=== PATIENT | female | born 1990 | race African-American/Black ===

== ENCOUNTER 2021-04-18 20:52 | Emergency (ER) | payer SELFPAY ==
[~2021-04-18] VITALS: Ht 162.6 cm; Wt 75.9 kg
[2021-04-19 02:20] VITALS: BP 111/74
[2021-04-19] MEDS ORDERED: DEXAMETHASONE 4 MG TABLET PO ONE (03:00)
[2021-04-19 03:06] LABS: BASO # 0.1 x10^3/uL (0.0-0.2); BASO % 1 % (0-3); EOS # 0.2 x10^3/uL (0.0-0.7); EOS % 3 % (0-3); HEMATOCRIT 41.3 % (36.0-47.0); HEMOGLOBIN 13.8 g/dL (12.0-15.5); LYMPH % 24 % (24-48); MEAN CORPUSCULAR HEMOGLOBIN 30 pg (25-35); MEAN CORPUSCULAR HGB CONC 33 g/dL (31-37); MEAN CORPUSCULAR VOLUME 91 fL (79-100); MONO % 12 % (0-9); NEUT # 4.9 x10^3/uL (1.8-7.7); NEUT % 60 % (31-73); PLATELET COUNT 251 x10^3/uL (140-400); RED BLOOD COUNT 4.53 x10^6/uL (3.50-5.40); RED CELL DISTRIBUTION WIDTH 13.8 % (11.5-14.5); WHITE BLOOD COUNT 8.2 x10^3/uL (4.0-11.0)
[2021-04-19 03:11] LABS: CALCIUM 9.1 mg/dL (8.5-10.1); CREATININE 0.9 mg/dL (0.6-1.0); GFR 89.6; POTASSIUM 3.8 mmol/L (3.5-5.1)
[2021-04-19 03:17] LABS: MONONUCLEOSIS PATIENT NEGATIVE (NEGATIVE)
--- NOTE | 2021-04-19 04:03 | RAD ---
EXAMINATION: CT NECK SOFT TISSUE WITHOUT CONTRAST, 04/19/2021 3:16 AM CLINICAL INDICATION: Concern for right-sided pharyngeal abscess. Contrast allergy. COMPARISON: None TECHNIQUE: Helical CT imaging performed of the neck without the use of intravenous contrast. Sagittal and coronal reformats were obtained. One or more of the following individualized dose reduction techniques were utilized for this examinat ion: 1. Automated exposure control 2. Adjustment of the mA and/or kV according to patient size 3. Use of iterative reconstruction technique. FINDINGS: The nasopharynx, oropharynx, hypopharynx, and larynx are normal. No obvious fluid collectio n or abscess. Evaluation is limited by lack of IV contrast. Parotid, submandibular, and thyroid gland s are normal. Visualized portion of the skull base is unremarkable. There are prominent bilateral cer vical chain lymph nodes, nonspecific and likely reactive. Lung apices are clear. There appears to be a right-sided aortic arch. No acute osseous abnormality of the cervical spine. IMPRESSION: Unremarkable CT of the neck. No evidence of abscess, although evaluation is limited by la ck of IV contrast. Electronically signed by: Fern Bravo MD (04/19/2021 4:01 AM) [id number]
--- NOTE | 2021-04-19 04:20 | PHYS DOC ---
Past Medical History Past Surgical History: No Surgical History General Adult EDM: Chief Complaint: SORE THROAT HPI: HPI: Patient is a 31 year old female who presents with approximately 6 days of sore throat. Worse on the right than the left. Worse with swallowing. No cough. Has had mild subjective fevers and chills. No runny nose. No shortness of breath. She still has her tonsils, and reports that she had a tonsillitis several months ago that got better with home remedies. Her throat hurts worse with movement of her neck left and right. Review of Systems: Review of Systems: Constitutional: Denies fever or chills. [] Eyes: Denies change in visual acuity. [] HENT: Denies nasal congestion. + sore throat. [] Respiratory: Denies cough or shortness of breath. [] Cardiovascular: Denies chest pain or edema. [] GI: Denies abdominal pain, nausea, vomiting, bloody stools or diarrhea. [] : Denies dysuria. [] Musculoskeletal: Denies back pain or joint pain. [] Integument: Denies rash. [] Neurologic: Denies headache, focal weakness or sensory changes. [] Endocrine: Denies polyuria or polydipsia. [] Lymphatic: Denies swollen glands. [] Psychiatric: Denies depression or anxiety. [] Heart Score: C/O Chest Pain: No Risk Factors: Risk Factors: DM, Current or recent (<one month) smoker, HTN, HLP, family history of CAD, obesity. Risk Scores: Score 0 - 3: 2.5% MACE over next 6 weeks - Discharge Home Score 4 - 6: 20.3% MACE over next 6 weeks - Admit for Clinical Observation Score 7 - 10: 72.7% MACE over next 6 weeks - Early Invasive Strategies Current Medications: Current Medications Medications (Trade) Dose Ordered Sig/Angelia Start Time Stop Time Status Last Admin Dose Admin Dexamethasone (Decadron) 10 mg 1X ONCE 04/19/21 03:00 04/19/21 03:01 DC 04/19/21 03:31 10 MG Allergies: Allergies: Allergies Coded Allergies Type Severity Reaction Last Updated Verified Iodine and Iodide Containing Produc Allergy Severe 04/19/21 Yes Physical Exam: PE: Constitutional: Well developed, well nourished, no acute distress, non-toxic appearance. [] HENT: Enlarged tonsils bilaterally. Uvula midline. Exudates present just posterior to her right tonsil. Right side of the neck slightly more swollen than the left with prominent anterior lymph nodes. Lymph nodes are present bilaterally. [] Eyes: PERRLA, EOMI, conjunctiva normal, no discharge. [] Neck: Normal range of motion, but notes pain in the right side of the neck with rotation. Tender anterior lymphadenopathy bilaterally. [] Cardiovascular:Heart rate regular rhythm, no murmur [] Lungs & Thorax: Bilateral breath sounds clear to auscultation [] Abdomen: Bowel sounds normal, soft, no tenderness, no masses, no pulsatile masses. [] Skin: Warm, dry, no erythema, no rash. [] Back: No tenderness, no CVA tenderness. [] Extremities: No tenderness, no cyanosis, no clubbing, ROM intact, no edema. [] Neurologic: Alert and oriented X 3, normal motor function, normal sensory function, no focal deficits noted. [] Psychologic: Affect normal, judgement normal, mood normal. [] Current Patient Data: Labs: Laboratory Tests Test 04/19/21 02:57 04/19/21 03:07 White Blood Count 8.2 x10^3/uL (4.0-11.0) Red Blood Count 4.53 x10^6/uL (3.50-5.40) Hemoglobin 13.8 g/dL (12.0-15.5) Hematocrit 41.3 % (36.0-47.0) Mean Corpuscular Volume 91 fL (79-100) Mean Corpuscular Hemoglobin 30 pg (25-35) Mean Corpuscular Hemoglobin Concent 33 g/dL (31-37) Red Cell Distribution Width 13.8 % (11.5-14.5) Platelet Count 251 x10^3/uL (140-400) Neutrophils (%) (Auto) 60 % (31-73) Lymphocytes (%) (Auto) 24 % (24-48) Monocytes (%) (Auto) 12 % (0-9) H Eosinophils (%) (Auto) 3 % (0-3) Basophils (%) (Auto) 1 % (0-3) Neutrophils # (Auto) 4.9 x10^3/uL (1.8-7.7) Lymphocytes # (Auto) 2.0 x10^3/uL (1.0-4.8) Monocytes # (Auto) 1.0 x10^3/uL (0.0-1.1) Eosinophils # (Auto) 0.2 x10^3/uL (0.0-0.7) Basophils # (Auto) 0.1 x10^3/uL (0.0-0.2) Sodium Level 137 mmol/L (136-145) Potassium Level 3.8 mmol/L (3.5-5.1) Chloride Level 101 mmol/L (98-107) Carbon Dioxide Level 31 mmol/L (21-32) Anion Gap 5 (6-14) L Blood Urea Nitrogen 11 mg/dL (7-20) Creatinine 0.9 mg/dL (0.6-1.0) Estimated GFR (Cockcroft-Gault) 89.6 Glucose Level 85 mg/dL (70-99) Calcium Level 9.1 mg/dL (8.5-10.1) Heterophil Agglutinins Negative (NEGATIVE) POC Urine HCG, Qualitative Hcg negative (Negative) Laboratory Tests 04/19/21 02:57 Laboratory Tests 04/19/21 02:57 Vital Signs: Vital Signs Date Time Temp Pulse Resp B/P (MAP) Pulse Ox O2 Delivery O2 Flow Rate FiO2 04/19/21 02:20 98.0 61 111/74 100 Room Air 98.0 EKG: EKG: [] Radiology/Procedures: Radiology/Procedures: [] Impression: [facility] [address] [place], [place] [id number] IMAGING REPORT Signed PATIENT: ERVIN ERAZO MACCOUNT: [id number] : 1990 LOCATION: ER AGE: 31 SEX: F EXAM STATUS: REG ER ORD. PHYSICIAN: ANASTASIA REHMAN MD REASON: CONCERN FOR R SIDED PHARYNGEAL ABSCESS. IODINE ALLERGY PROCEDURE: CT SOFT TISSUE NECK WO CONTRST EXAMINATION: CT NECK SOFT TISSUE WITHOUT CONTRAST, 04/19/2021 3:16 AM CLINICAL INDICATION: Concern for right-sided pharyngeal abscess. Contrast allergy. COMPARISON: None TECHNIQUE: Helical CT imaging performed of the neck without the use of intravenous contrast. Sagittal and coronal reformats were obtained. One or more of the following individualized dose reduction techniques were utilized for this examination: 1. Automated exposure control 2. Adjustment of the mA and/or kV according to patient size 3. Use of iterative reconstruction technique. FINDINGS: The nasopharynx, oropharynx, hypopharynx, and larynx are normal. No obvious fluid collection or abscess. Evaluation is limited by lack of IV contrast. Parotid, submandibular, and thyroid glands are normal. Visualized portion of the skull base is unremarkable. There are prominent bilateral cervical chain lymph nodes, nonspecific and likely reactive. Lung apices are clear. There appears to be a right-sided aortic arch. No acute osseous abnormality of the cervical spine. IMPRESSION: Unremarkable CT of the neck. No evidence of abscess, although eval uation is limited by lack of IV contrast. Electronically signed by: Fern Bravo MD (04/19/2021 4:01 AM) [id number] DICTATED and SIGNED BY: FERN BRAVO MD DATE: 04/19/21 [id number] 0 Course & Med Decision Making: Course & Med Decision Making Pertinent Labs and Imaging studies reviewed. (See chart for details) Patient is a 31-year-old female without pertinent past medical history presents with 6 days of sore throat and dysphagia. On arrival is afebrile and hemodynamically stable. Exam is notable for exudates posterior to the right tonsil. No evidence of peritonsillar abscess. She did have significant right-sided fullness much greater than the left anterior neck exam and pain with range of motion, raising concern for parapharyngeal abscess. She notes that she has had hives with topical iodine in the past, therefore a noncontrasted CT of the neck was obtained, and ultimately appeared negative for abscess. Strep screen negative. No leukocytosis or BMP abnormalities. Sevier screen is negative. Given dexamethasone in the ED. Dragon Disclaimer: Dragon Disclaimer: This electronic medical record was generated, in whole or in part, using a voice recognition dictation system. Departure Departure Impression: Primary Impression: Pharyngitis Disposition: HOME / SELF CARE / HOMELESS Condition: STABLE Referrals: NO PCP (PCP) Additional Instructions: The CT scan of your neck was negative for signs of an abscess. Your test was negative for mononucleosis. Strep test was negative as well. Your blood work was reassuring. We gave you a steroid called dexamethasone, which is an anti-inflammatory medication that should last for 3-4 days and should hopefully improve your symptoms. If you develop high fevers/shaking chills, worsening pain you can always return to the emergency department for reevaluation. If you do not have a PCP, please call the number for the [facility] at [phone]. ANASTASIA REHMAN MD Apr 19, 2021 04:20
== END 2021-04-19 05:10 | disposition home or self-care (01) ==
LOC: ER 20:52
DX: J02.9 Acute pharyngitis, unspecified (principal); R59.0 Localized enlarged lymph nodes; Z91.041 Radiographic dye allergy status
CPT/HCPCS: 36415; 70490; 80048; 81025; 85025; 86308; 87070; 87880; 99284